=== PATIENT | male | born 1980 | race Two or more races ===

== ENCOUNTER 2020-03-20 14:00 | Emergency (ER) | payer OTHER | END 2020-03-20 17:00 | LOC: ED 14:00 | DX: Z02.89 Encounter for other administrative examinations (principal) ==

== ENCOUNTER 2020-03-20 14:00 | Emergency (ER) | payer MEDICAID ==
[~2020-03-20] VITALS: Ht 175.3 cm; Wt 81.6 kg
[2020-03-20 14:20] VITALS: BP 140/94; Ht 175.3 cm; Wt 81.6 kg
== END 2020-03-20 17:00 ==
LOC: ED 14:00
DX: S00.83XA Contusion of other part of head, initial encounter (principal); B19.20 Unspecified viral hepatitis C without hepatic coma; F17.210 Nicotine dependence, cigarettes, uncomplicated; Y04.2XXA Assault by strike against or bumped into by another person, initial encounter; Y93.89 Activity, other specified; Y92.89 Other specified places as the place of occurrence of the external cause; Y99.8 Other external cause status
CPT/HCPCS: 99406; J1885